=== PATIENT | male | born 1985 | race Native Hawaiian/Other Pacific Islander ===

== ENCOUNTER 2016-12-04 19:58 | Observation (INO) | payer MEDICAID ==
--- NOTE | 2016-12-04 20:10 | C.PDOC ---
History Of Present Illness A 31 year old male, with a history of HTN and morbid obesity, presents to the ED with a sudden onset of left sided weakness and left sided facial droop prior to arrival. EMS reports patient had these symptoms on arrival to the house. Patient states he was previously at baseline before these symptoms. Patient denies any chest pain, shortness of breath, fever, chill. nausea, vomiting, or any other complaints. Chief Complaint (Nursing): Weakness/Neurological Deficit History Per: Patient History/Exam Limitations: no limitations Onset/Duration Of Symptoms: Hrs, Waxing/Waning Associated Symptoms Preceding Syncopal Episode: No Predromal Symptoms (Sudden Onset) Seizure Or Post-ictal Symptoms: None Fall Associated With With Symptoms: No Severity: Moderate Recent travel outside of the [place]: No Past Medical History Reviewed: Historical Data, Nursing Documentation, Vital Signs Vital Signs: Last Vital Signs Temp 98.4 F 12/05/16 00:27 Pulse 87 12/05/16 00:27 Resp 20 12/05/16 00:27 BP 134/81 12/05/16 00:27 Pulse Ox 95 12/05/16 00:27 - Medical History PMH: HTN Family History: States: No Known Family Hx - Social History Hx Alcohol Use: No Hx Substance Use: No - Immunization History Hx Tetanus Toxoid Vaccination: No Hx Influenza Vaccination: No Review Of Systems Except As Marked, All Systems Reviewed And Found Negative. Constitutional: Negative for: Fever, Chills Cardiovascular: Negative for: Chest Pain Respiratory: Negative for: Shortness of Breath Gastrointestinal: Negative for: Nausea, Vomiting, Diarrhea Neurological: Positive for: Weakness (Left sided weakness), Other (Left sided facial droop) Physical Exam - Physical Exam Appears: Non-toxic Skin: Warm, Dry, No Rash Head: Other (Left sided facial droop) Eye(s): bilateral: Normal Inspection Ear(s): Bilateral: Normal Nose: Normal, No Discharge Oral Mucosa: Moist Neck: Normal ROM, No Midline Cervical Tenderness, No Paracervical Tenderness, Supple Cardiovascular: Rhythm Regular Respiratory: Normal Breath Sounds, No Rales, No Rhonchi, No Wheezing Gastrointestinal/Abdominal: Soft, No Tenderness, No Guarding, No Rebound Back: No CVA Tenderness, No Vertebral Tenderness Extremity: No Tenderness, No Swelling Neurological/Psych: Oriented x3, Normal Speech, Normal Cognition, Other (Left sided arm weakness) ED Course And Treatment - Laboratory Results Result Diagrams: 12/04/16 20:06 12/04/16 20:06 ECG: Interpreted By Me, Viewed By Me ECG Rhythm: Sinus Rhythm Interpretation Of ECG: Nonspecific ST/T changes Rate From EC O2 Sat by Pulse Oximetry: 97 NIHSS Stroke Scale - Date/Time Evaluation Performed Date Performed: 12/04/16 Time Performed: 20:10 When Was NIHSS Performed: Baseline - How Severe is the Stoke Level of Consciousness: 0=Alert LOC to Questions: 0=Both comments correct LOC to commands: 0=Obeys both correctly Best Gaze: 0=Normal Visual: 0=No visual loss Facial: 1=Minor asymmetry Motor Arm - Left: 4=No movement Motor Arm - Right: 0=No drift Motor Leg - Left: 0=No drift Motor Leg - Right: 0=No drift Limb Ataxia: 1=Present Upper or Lower Sensory: 0=Normal Best Language: 0=No aphasia Dysarthia: 0=Normal articulation Extinction & Inattention (Neglect): 0=Normal, no object Score: 6 Severity Of Stroke: 5-15= Moderate Stroke rTPA Inclusion/Exclusion - Refusal of Treatment Patient Refused Treatment: No - Inclusion Criteria for Altepase Patient is 18 years or Older: Yes The Clinical Diagnosis of Ischemic Stroke That is Causing a Potentially Disabling Neurological Deficit: Yes Time of Onset is Well Established to be Less Than 270 Minute Before Treatment Would Begin: Yes Risk/Benefit Discussed With Patient/Family Member Present: Yes - Exclusion Criteria for Altepase Uncontrolled Hypertension at Time of Treatment (Systolic BP above 185 or Diastolic BP above 110 mmHg): No Active Internal Bleeding: No Known Bleeding Diathesis Including but Not Limited to: Platelets Below 100,000/ mm,PTT Above 40 sec After Heparin Use, Current Use of Oral Anitcoagulant With INR Greater Than 1.7 or PT Greater Than 15 secs: No Evidence of an Intracranial Hemorrhage: No Evidence of Major Acute Infarct With Signs Greater Than 1/3 MCA Territory: No Suspicion of Subarachnoid Hemorrhage on Pretreatment Evaluation Even if CT Head Negative For Hemorrhage: No - Warning to TPA With Conditions Following Conditions Weighed Against Anticipated Benefit: No Medical Decision Making Medical Decision Making: r/o cva Plan: -- EKG -- Head CT -- CXR -- Labs 810: head ct neg. labs unremarkable. case discussed with dr wellington cummings. pt is a TPA candidate. TPA ordered from pharmacy. pt with family bedside. discussed risk/benefit with patient. strongly encouraged administration of TPA as pt with non improving deficit. pt refuses TPA. explained via hard candy batch mixer phone, as well as with family bedside, pt continuely refuses. multiple RN bedside attempt to explain benefits. pt continues to refuse. had at length discussion, over 40 min , pt continues to refuse. updated dr davie cummings. called dr trinidad, requests hospitalist. admission. dr mijares accepts. pt additionaly refuses ASA. also explained benefits at length. pt oriented x 3, verbalizes understanding of benefits. I have personally explained to the patient that choosing to do so may result in permanent bodily harm or . he patient is alert, oriented, and shows the mental capacity to make clear decisions regarding the patients health care at this time. The patient continues to wish to refuse TPA and ASA Disposition - Disposition Disposition: HOSPITALIZED Disposition Time: 11:00 Condition: SERIOUS - Clinical Impression Clinical Impression: Arm weakness, Focal neurological deficit - Scribe Statement The provider has reviewed the documentation as recorded by the Scribzohra Smith All medical record entries made by the Benitezibe were at my direction and personally dictated by me. I have reviewed the chart and agree that the record accurately reflects my personal performance of the history, physical exam, medical decision making, and the department course for this patient. I have also personally directed, reviewed, and agree with the discharge instructions and disposition.
[2016-12-04 20:11] LABS: BASO % 0.6 % (0.0-2.0); EOS # 0.1 K/uL (0.0-0.7); EOS % 1.7 % (0.0-4.0); HEMATOCRIT 46.3 % (35.0-51.0); LYMPH # 2.8 K/uL (1.0-4.3); LYMPH % 38.2 % (20.0-40.0); MEAN CELL VOLUME 73.7 fL (80.0-94.0); MEAN CORPUSCULAR HEMOGLOBIN 24.9 pg (27.0-31.0); MEAN CORPUSCULAR HGB CONC 33.8 g/dL (33.0-37.0); MONO # 0.4 K/uL (0.0-0.8); MONO % 5.4 % (0.0-10.0); RED CELL DISTRIBUTION WIDTH 14.7 % (11.5-14.5); WHITE BLOOD COUNT 7.4 K/uL (4.8-10.8)
[2016-12-04 20:18] LABS: CHLORIDE 104 mmol/L (98-107)
[2016-12-04 20:19] LABS: POTASSIUM 3.3 mmol/L (3.6-5.2); SODIUM 140 mmol/L (132-148)
[2016-12-04 20:21] LABS: ALB/GLOB RATIO 1.2 (1.0-2.1); ALKALINE PHOSPHATASE 55 U/L (38-126); ALT/SGPT 36 U/L (21-72); AST/SGOT 23 U/L (17-59); BILIRUBIN,TOTAL 0.8 mg/dL (0.2-1.3); BLOOD UREA NITROGEN 16 mg/dL (9-20); CALCIUM 8.3 mg/dl (8.6-10.4); CARBON DIOXIDE 22 mmol/L (22-30); CHOLESTEROL 188 mg/dL (0-199); GFR AFRICAN-AMERICAN > 60; GLUCOSE,RANDOM 225 mg/dL (75-110); TOTAL PROTEIN 7.1 g/dL (6.3-8.3)
[2016-12-04] MEDS ORDERED: Labetalol 5 mg/ml Inj 20ML IVP ONE (20:25)
--- NOTE | 2016-12-04 21:05 | CT ---
EXAM: CT Head Without Intravenous Contrast CLINICAL HISTORY: 31 years old, male; Signs and symptoms; Weakness, facial; Patient HX: Left facial droop and left armweakness; Additional info: Code stroke TECHNIQUE: Axial computed tomography images of the head/brain without intravenous contrast. This CT exam was performed using one or more of the following dose reduction techniques: automated exposure control, adjustment of the mA and/or kV according to patient size, and/or use of iterative reconstruction technique. EXAM DATE/TIME: 12/04/2016 7:59 PM COMPARISON: No relevant prior studies available. FINDINGS: BRAIN: No significant acute abnormality identified. No acute hemorrhage seen within the brain. No acute extraaxial fluid collections visualized. No evidence of significant intracranial mass effect. No CT findings to suggest an acute, large territorial infarct, however, small or early acute infarcts may not be visible on CT. VENTRICLES: No evidence of significant hydrocephalus. BONES/JOINTS: No acute fractures or other acute bony abnormality noted. SOFT TISSUES: Soft tissue swelling involving the left scalp. SINUSES: Visualized paranasal sinuses appear clear. MASTOID AIR CELLS: Mastoid air cells appear clear. IMPRESSION: - No acute findings seen within the brain. - Soft tissue swelling in the left scalp line, of uncertain etiology. Recommend clinical correlation. - See above for remaining findings.
[2016-12-05 00:16] VITALS: RESP 20; TEMP 98.4
[2016-12-05 00:28] VITALS: BP 134/81; PULSE 87
--- NOTE | 2016-12-05 02:18 | CP.PCM.HP ---
<Taj Mota - Last Filed: 12/05/16 02:10> History of Present Illness - History of Present Illness History of Present Illness: CC: Left sided weakness HPI: Patient is a 31 y/o M with hx of HTN, and HLD who presented to the ED with left sided weakness and left sided facial droop. Code stroke was called in the ED. The patient reports he was drinking a bottle of water while talking with a friend and felt weak in his left arm and began to choke on the water. His friend noticed the left side of his face was "crooked" and water was pouring from his lip. He then was broguht to the ED. the patient states he had a similar episode years ago when his dog . He says developed left arm paralysis which lasted a few hours but alleviated. Also, he says he went through depression 7 years ago where he could not move his legs for a month. Recently his immigration papers were lost and he is upset about this. The patient believes that his emotions are causing his arm to be weak. He denies any headache, blurry vision, nausea, vomiting, chest pain, numbness, or tingling. He only has left arm paralysis at this time according to him. Patient wanted to sign out AMA from ED. PMD: none Past medical hx: HTN, HLD, hydrocele Surgical hx: testicular hydrocele Family hx: parents have diabetes Allergies: NKDA Social: smokes pack a day 12 years, denies alcohol or drug use. Present on Admission - Present on Admission Any Indicators Present on Admission: No Review of Systems - Constitutional Constitutional: absent: Chills, Fever - EENT Eyes: absent: Change in Vision Ears: absent: Decreased Hearing, Dizziness Nose/Mouth/Throat: absent: Dysphagia, Sore Throat, Facial Pain, Neck Mass - Cardiovascular Cardiovascular: absent: Chest Pain, Dyspnea, Leg Edema - Respiratory Respiratory: absent: Cough, Dyspnea - Gastrointestinal Gastrointestinal: absent: Abdominal Pain, Nausea, Vomiting - Genitourinary Genitourinary: absent: Dysuria, Hematuria - Musculoskeletal Musculoskeletal: Muscle Weakness. absent: Numbness, Tingling - Integumentary Integumentary: absent: Lesions, Skin Pain, Wounds - Neurological Neurological: Weakness. absent: Numbness, Tingling, Vertigo - Psychiatric Psychiatric: Anxiety, Depression - Endocrine Endocrine: absent: Change in Body Appearance Past Patient History - Infectious Disease Hx of Infectious Diseases: None - Past Social History Smoking Status: Heavy Smoker > 10 Cigarettes Daily Alcohol: None Drugs: Denies Home Situation {Lives}: With Family - CARDIAC Hx Hypertension: Yes - PSYCHIATRIC Hx Substance Use: No - SURGICAL HISTORY Hx Surgeries: No - ANESTHESIA Hx Anesthesia: No Meds Allergies/Adverse Reactions: Allergies Allergy/AdvReac Type Severity Reaction Status Date / Time No Known Allergies Allergy Verified 12/05/16 21:21 Physical Exam - Constitutional Appears: Non-toxic, No Acute Distress - Head Exam Head Exam: ATRAUMATIC, NORMOCEPHALIC - Eye Exam Eye Exam: EOMI, Normal appearance, PERRL Pupil Exam: NORMAL ACCOMODATION, PERRL - ENT Exam ENT Exam: Mucous Membranes Moist. absent: Normal Oropharynx (poor dentition) - Respiratory Exam Respiratory Exam: Clear to Auscultation Bilateral, NORMAL BREATHING PATTERN. absent: Rales, Rhonchi, Wheezes - Cardiovascular Exam Cardiovascular Exam: REGULAR RHYTHM, +S1, +S2. absent: Gallop, Rubs, Systolic Murmur - GI/Abdominal Exam GI & Abdominal Exam: Normal Bowel Sounds, Soft. absent: Distended, Guarding, Rigid, Tenderness - Extremities Exam Extremities exam: Positive for: normal capillary refill, normal inspection, pedal pulses present. Negative for: pedal edema, tenderness - Back Exam Back exam: NORMAL INSPECTION. absent: rash noted, tenderness - Neurological Exam Neurological exam: Alert, Oriented x3 - Expanded Neurological Exam Expanded Patient oriented to: person, place, time Speech: Fluid Speech Cranial nerves: EOM's Intact: Normal, Facial Palsey w/Forehead Movement: Normal , Facial Palsey w/o Forehead Movement: Normal, Facial Sensation: Normal, Nystagmus: Normal, Tongue Deviation: Normal Cerebellar Function: Finger to Nose: Abnormal Left (patient did not move arm), Heel to Shepherd: Normal, Romberg: Normal Upper motor neuron: Satnam Neglect: Normal, Sensory Extinction: Normal Sensory exam: Lower Extremity 2 Point Discrimination: Normal, Lower Extremity Light Touch: Normal, Upper Extremity 2 Point Discrimination: Normal, Upper Extremity Light Touch: Normal Neuro motor strength exam: Left Upper Extremity: 2/1 (patient unable to lift arm ; however, when arm was placed over patient's head, he dropped it to the bed and not his face. Also when extending across, patient would often resist movment.), Right Upper Extremity: 5, Left Lower Extremity: 5, Right Lower Extremity: 5 - Psychiatric Exam Psychiatric exam: Anxious - Skin Skin Exam: Dry, Intact, Normal Color, Warm Results - Vital Signs Recent Vital Signs: Last Vital Signs Temp 98.4 F 12/05/16 00:27 Pulse 87 12/05/16 00:27 Resp 20 12/05/16 00:27 BP 134/81 12/05/16 00:27 Pulse Ox 95 12/05/16 00:27 - Labs Result Diagrams: 12/04/16 20:06 12/04/16 20:06 Assessment & Plan - Assessment and Plan (Free Text) Plan: Left sided weakness: * CT showed no evidence of acute hemorrhage or infarct * Code stroke called * Neurology consulted help appreciated * facial weakness resolved prior to being seen in ED * patient able to feel all sensation on all 4 extremities equally * when arm was held over face, the arm dropped to the bed instead of on face. Also, he was able to resist movement when adducting the arm. * patient admitted for further evaluation Patient requested to sign out AMA. Risks of signing out were told to the patient and he verbalized understanding, he signed AMA form and left the hospital. <Candido Reyes P - Last Filed: 12/06/16 20:03> Results - Vital Signs Recent Vital Signs: Last Vital Signs Temp 98.4 F 12/05/16 00:27 Pulse 87 12/05/16 00:27 Resp 20 12/05/16 00:27 BP 134/81 12/05/16 00:27 Pulse Ox 95 12/05/16 00:27 - Labs Result Diagrams: 12/04/16 20:06 12/04/16 20:06 Attending/Attestation - Attestation I have personally seen and examined this patient.: Yes I have fully participated in the care of the patient.: Yes I have reviewed all pertinent clinical information: Yes
--- NOTE | 2016-12-05 08:47 | RAD ---
HISTORY: code stroke COMPARISON: No prior. FINDINGS: LUNGS: Mild venous congestion. Patchy bibasilar airspace opacities. PLEURA: No significant pleural effusion identified, no pneumothorax apparent. CARDIOVASCULAR: Normal. OSSEOUS STRUCTURES: No significant abnormalities. VISUALIZED UPPER ABDOMEN: Normal. OTHER FINDINGS: None. IMPRESSION: Mild venous congestion. Patchy bibasilar airspace opacities.
[2016-12-07 07:35] VITALS: O2SAT 97
--- NOTE | 2016-12-07 08:37 | CARD ---
APPROVED REPORT EKG Measurement Heart [id number] CO [id number] <Conclusion> Normal sinus rhythm Normal ECG artifact present
== END 2016-12-04 23:50 | disposition left against medical advice (07) ==
LOC: C.ER 19:58 → C.9E 21:46 → INTOOBSV 21:46 → C.6T 22:16
PROVIDERS: ADMIT Internal Medicine; ATTEND Internal Medicine
DX: G81.94 Hemiplegia, unspecified affecting left nondominant side (principal); E66.01 Morbid (severe) obesity due to excess calories; I10 Essential (primary) hypertension; R29.810 Facial weakness; R55 Syncope and collapse; E78.5 Hyperlipidemia, unspecified; Z87.891 Personal history of nicotine dependence
CPT/HCPCS: 70450; 71010; 80053; 80061; 82948; 83036; 84484; 85025; 85610; 85730; 86850; 86900; 93005; 99285; G0378